=== PATIENT | female | born 1950 | race Caucasian/White ===

== ENCOUNTER → 2016-04-29 | Outpatient (CLI) | payer MEDICARE | END | disposition home or self-care (01) | LOC: LABPAT 10:45 | PROVIDERS: ATTEND Orthopaedic Surgery | DX: Z01.812 Encounter for preprocedural laboratory examination (principal) | CPT/HCPCS: 86850; 86900; 86901; 87070 ==

== ENCOUNTER → 2016-04-30 | Outpatient (CLI) | payer MEDICARE ==
--- NOTE | 2016-04-30 09:33 | XR ---
EXAMINATION TYPE: XR chest 2V DATE OF EXAM: 04/30/2016 9:27 AM HISTORY: Bilateral mastectomy. REFERENCE: Previous study dated 07/21/2010. FINDINGS: There has been bilateral mastectomies. There has been a left axillary dissection. The lungs are overinflated but clear. Pleural spaces are clear. Heart size is within normal limits. IMPRESSION: 1. STATUS POST BILATERAL MASTECTOMIES. 2. COPD. 3. NO ACUTE INTRATHORACIC ABNORMALITY.
[2016-04-30 09:37] LABS: Basophils % (A) 1 %; CH 31.3; CHCM 32.8; Eosinophils % (A) 1 %; HDW 2.02; HGB 13.1 gm/dL (11.4-16.0); Luc % (Auto) 3; Lymphocytes # (A) 0.9 k/uL (1.0-4.8); Lymphocytes % (A) 27 %; MCH 30.7 pg (25.0-35.0); MCHC 32.1 g/dL (31.0-37.0); MCV 95.8 fL (80.0-100.0); Mean Platelet Volume 6.7; Monocytes # (A) 0.3 k/uL (0-1.0); Monocytes % (A) 7 %; Neutrophils # (A) 2.1 k/uL (1.3-7.7); Neutrophils % (A) 61 %; RBC 4.28 m/uL (3.80-5.40); RDW 12.4 % (11.5-15.5); WBC 3.5 k/uL (3.8-10.6); WBC (Perox) 3.35
[2016-04-30 09:50] LABS: INR 0.9 (<1.1); Prothrombin Time 9.5 sec (9.0-12.0)
[2016-04-30 09:51] LABS: Partial Thromboplastin Time 23.5 sec (22.0-30.0)
== END | disposition home or self-care (01) ==
LOC: LABPAT 09:05
PROVIDERS: ATTEND Orthopaedic Surgery
DX: J44.9 Chronic obstructive pulmonary disease, unspecified (principal); Z01.812 Encounter for preprocedural laboratory examination; I10 Essential (primary) hypertension; Z79.01 Long term (current) use of anticoagulants; Z90.13 Acquired absence of bilateral breasts and nipples
CPT/HCPCS: 71020; 80051; 85025; 85610; 85730; 86850; 86900; 86901

== ENCOUNTER 2016-05-04 05:54 | Inpatient (IN) | payer MEDICARE ==
--- NOTE | 2016-04-20 15:12 | CONS ---
DATE OF CONSULTATION: Consultation regarding preop medical evaluation. Patient is scheduled to undergo right total hip arthroplasty. I have been asked to see the patient preoperatively. She has significant pains and at times feels like her hip is going to give out. She does use a cane to ambulate. The pain at present is mostly with weight-bearing. Patient at present has had no recent infections. She has no history of unusual abnormal bleeding or any previous history of DVT or VTE. The patient is in good health in the general. Past medical history is significant for hypertension for the past 5 years, history of bilateral mastectomy for a malignancy of the left breast. She had a right prophylactic mastectomy. No history of any lung, liver, kidney disease, history of hypothyroidism for the past about 3 months on replacement therapy. Previous history of herpes zoster with no recurrence, history of B12 deficiency on regular B12 shots. She has a history of chronic depression, well controlled with medication for the past 10 years. 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 Past surgical history is significant for total abdominal hysterectomy with bilateral salpingo-oophorectomy, bilateral mastectomy in 1990, right wrist fracture ORIF. PERSONAL HISTORY: As she is an ex-smoker, quit smoking 30 years ago. Used to smoke half pack per day for 15 years. Alcohol about 2 drinks a day. VACCINATION HISTORY: TDAP in 2013. Annual flu shot and a Pneumovax in 2013. ALLERGIES: None known. Medications include: 1. Losartan/hydrochlorothiazide 100 - 25 one daily. 2. Thyroid 30 mcg daily. 3. Zoloft 50 mg 1-1/2 tablet daily. 4. Takes Probiotica iodine. 5. Gets testosterone Depo injections. 6. Takes vitamin D. 7. Also takes B12 injections. SOCIAL HISTORY: Patient is and lives with her spouse. Patient exercises regularly until about 6 months ago due to the pain in the hips. FAMILY MEDICAL HISTORY: Father at the age of 94. He had metastatic melanoma. Mother at the age of 78. She had idiopathic pulmonary fibrosis. No brothers or sisters, 63, in good health. One daughter and one son in good health. REVIEW OF SYSTEMS: NEURO: Denies any headaches, dizziness. No double vision, blurred vision. No symptoms of TIA, syncope, seizures. CARDIAC: No chest pain, angina, palpitation. PSYCH: No anxiety, depression symptoms at present, history of depression. CARDIAC: No chest pain, angina, palpitation. RESPIRATORY: No shortness breath, cough, hemoptysis. GI: No nausea, vomiting, abdominal pain, diarrhea, constipation, hematochezia, melena. : No symptoms of dysuria, hematuria, urgency, frequency. No incontinence. EXTREMITIES: No pain except in the right and left hip area. CONSTITUTIONAL: No fever, chills. No recent infections. SKIN: No rashes or open sores. ENT: Adequate hearing, smell, taste. No pharyngeal infections. No dental issues with good dental hygiene and no history of gingivitis. PHYSICAL EXAMINATION: Pleasant female in no distress. Vital signs reveal blood pressure was 150/80. She is afebrile, respirations 18. Pulse 60, ( ) regular. HEENT: Normocephalic. NECK: Supple. No JVD. Oral cavity is moist. Pharynx clear. Gingiva normal. Ears reveal no drainage. Neck reveals no JVD, carotid bruits, or thyromegaly. Chest is clear to auscultation and percussion. CARDIAC: Normal S1, S2 with no gallops, murmurs, rubs. ABDOMEN: Soft. Bowel sounds present. EXTREMITIES: No edema. Good pulses, both upper and lower extremities. Neurologically awake, alert, oriented with well-coordinated movements except for some discomfort at the hip joints. LABORATORY ASSESSMENT: An EKG which is within normal limits. Chemistry and CBC pending. Labs done back in December had showed a sodium of 131, otherwise unremarkable. ASSESSMENT: 1. Hypertension, controlled. 2. Hypothyroidism, on medical therapy. 3. Degenerative arthritis. 4. History of depression, controlled. PLAN: The patient is stable. Continue present medical, regimen. 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 She will resume her antihypertensives postoperatively. Patient's condition discussed with the patient. Prognosis guarded. Recommended not to take any nonsteroidals including aspirin. The patient's condition discussed, benefits and risks of surgery reviewed. The risk of DVT, PE and infections reviewed. The patient's condition stable for the surgery.
[2016-04-26 11:52] VITALS: BMI 23.0
--- NOTE | 2016-05-03 15:01 | HP ---
DATE OF ADMISSION: CHIEF COMPLAINT: Right hip pain. HISTORY OF PRESENT ILLNESS: The patient is a 66-year-old retired female who presents with progressive right hip pain worsening over the past year. She notes pain in her groin when she tries to walk. She notes she is limping. She has been using a cane and has tried anti-inflammatories. PAST MEDICAL HISTORY: Significant for hypertension, breast cancer, depression and TIA. Past surgical history is significant for bilateral mastectomy, fixation of a right wrist fracture, hysterectomy with oophorectomy. CURRENT MEDICATIONS: 1. Losartan/hydrochlorothiazide. 2. Synthroid. 3. Zoloft. She denies drug allergies. FAMILY HISTORY: Significant for cancer. SOCIAL HISTORY: Negative for current tobacco or alcohol use. A 16-point review of systems otherwise reviewed and is noncontributory. On examination, the patient is approximately 5 foot 4, 130 pounds of mesomorphic habitus. HEENT exam is nonfocal. Neck is supple. Passive motion of the right hip, flexion 90 degrees, external rotation with hip flexed 60 degrees, internal rotation 10 degrees with pain. She has full extension. She is tender about the anterior aspect of the right hip. Clinically, she has some shortening of the right lower extremity compared to the left. She walks with an antalgic gait pattern. She is nontender about the lumbar spine. Her distal neurovascular exam appears be intact in the right lower extremity. AP and lateral views of the right hip obtained in the office show severe osteoarthrosis. MRI report from 05/01/2015 of the right hip shows osteoarthrosis. IMPRESSION: Right hip severe osteoarthrosis-symptomatic. RECOMMENDATIONS: I talked to the patient and her at length regarding her treatment options. At this point, she is quite limited because of pain related to her osteoarthrosis. She opts to proceed with surgery. We will plan to proceed with right total hip arthroplasty. Risks and benefits are discussed at length in layman's terms. We will institute DVT prophylaxis postoperatively. The patient underwent preoperative medical evaluation by Dr. Alston.
[~2016-05-04 05:54] MED LIST: ACETAMINOPHEN TAB 500 MG TAB PO ONE; HYDROmorphone 1 MG/ML 1 ML SYRINGE IVP PRN; MELOXICAM 7.5 MG TAB PO ONE; MIDAZOLAM 2 MG/2 ML VIAL IV PRN; ONDANSETRON 4 MG/2 ML VIAL IVP ONE; TRANEXAMIC ACID 1,000 MG in SODIUM CHLORIDE 0.9% 100 ML IVPB ONE; ceFAZolin 2 GM in SODIUM CHLORIDE 0.9% 100 ML IVPB ONE
[2016-05-04] MEDS: LACTATED RINGERS 1,000 ML IV SCH (07:09)
[2016-05-04] MEDS ORDERED: fentaNYL (PF) 50 MCG/ML 2 ML AMP ONE (07:25)
[2016-05-04] MEDS ORDERED: PHENYLEPHRINE-0.9% NACL SYG 1 MG/10 ML SYRINGE ONE (07:25)
[2016-05-04] MEDS ORDERED: SODIUM CHLORIDE 0.9% 100 ML BAG ONE (07:25)
[2016-05-04] MEDS ORDERED: MORPHINE SULFATE (PF) 0.3 MG/0.3 ML SYR ONE (07:25)
[2016-05-04] MEDS ORDERED: TRANEXAMIC ACID 1,000 MG/10 ML VIAL ONE (07:25)
[2016-05-04] MEDS ORDERED: MIDAZOLAM 2 MG/2 ML VIAL ONE (07:25)
[2016-05-04] MEDS ORDERED: diphenhydrAMINE 50 MG/ML 1 ML VIAL ONE (07:25)
[2016-05-04] MEDS ORDERED: PROPOFOL 10 MG/ML 20 ML VIAL IV ONE (07:25)
[2016-05-04] MEDS ORDERED: ceFAZolin 3,000 MG in SODIUM CHLORIDE 0.9% IRRIGATIO 3,000 ML IRRIGATION ONE (08:07)
[2016-05-04] MEDS ORDERED: LACTATED RINGERS 1,000 ML IV ONE ×3 (08:23→10:52)
[2016-05-04] MEDS ORDERED: MORPHINE SULFATE 4 MG/ML SYRINGE IVP PRN (09:18)
[2016-05-04] MEDS ORDERED: NALOXONE 0.4 MG/ML 1 ML VIAL IV PRN ×2 (09:18→09:21)
[2016-05-04] MEDS ORDERED: diphenhydrAMINE 50 MG/ML 1 ML VIAL IVP PRN (09:18)
[2016-05-04] MEDS ORDERED: ONDANSETRON 4 MG/2 ML VIAL IVP PRN ×2 (09:18→09:21)
[2016-05-04] MEDS ORDERED: HYDROcodone/APAP 5-325MG 1 EACH TAB PO PRN ×2 (09:21)
[2016-05-04] MEDS ORDERED: MAGNESIUM HYDROXIDE 2,400 MG/10 ML CUP PO PRN (09:21)
[2016-05-04] MEDS ORDERED: HYDROmorphone 1 MG/ML 1 ML SYRINGE IVP PRN (09:21)
--- NOTE | 2016-05-04 09:40 | P.OP ---
Date of Procedure: 05/04/16 Preoperative Diagnosis: Right hip severe osteoarthrosis Postoperative Diagnosis: Same Procedure(s) Performed: Right total hip nksqfolxtcuj-qmkxs-gor-anterior approach Implants: Depuy Corail size 12 collared press-fit femoral stem, 32 mm +1 cobalt chrome femoral head, 52 mm acetabular shell with neutral polyethylene liner. Anesthesia: spinal Surgeon: Jayme Wong Ship Design Teacher #1: Rigo Posadas Estimated Blood Loss (ml): 250 Pathology: other (Femoral head) Condition: stable Disposition: PACU Indications for Procedure: The patient's a 66-year-old female presents with progressive right hip pain secondary to osteoarthrosis despite conservative measures. A discussion of the risks and benefits of operative intervention versus continued conservative measures was made with the patient. She opted to proceed with surgery. Operative risks to include infection, neurovascular injury, development of blood clots, possible component loosening, possible ligament discrepancy, possible dislocation need for subsequent procedures was discussed. Informed consent was obtained. Operative Findings: as below Description of Procedure: The patient was brought to the operating room, and after induction of spinal anesthesia was placed supine on the Sasha table. The right lower extremity was prepped and draped in normal fashion. Preoperative templating previously was performed estimated component positioning and sizes. A 12 cm incision was then made 3 fingerbreadths posterior and once fingerbreadth distal to the ASIS and extending distally in line with the tensor fascia lakeisha. The skin was incised sharply. Subcu changed tissues were divided sharply. Underlying fascia was identified. The fascia was opened. The tensor fascia lakeisha/sartorius interval was then bluntly developed. The underlying posterior fascia was opened with electrocautery. The lateral circumflex vessels were identified and coagulated and subsequently were transected. The rectus was elevated off the anterior capsule. A retractor was placed perpendicular to the inguinal ligament over the anterior rim of the acetabulum. A wide capsulotomy was performed. I then gently dislocated the hip and relocated. The femoral neck osteotomy was made with a sagittal saw at a 45 angle to shaft proximally 1 cm above the level of the lesser trochanter. The head was then extracted. Attention was then paid towards preparing the acetabular. The remaining labral and capsular tissue was debrided and acetabular margins were clearly identified. A 45 mm reamer was then used to initially medialize. A reamer was then used at 45 of abduction and 20 of anteversion. I reamed up to 51 mm down to a bleeding bony surface. A trial 52 mm acetabular shell was inserted in the same orientation and was fully seated. There was good rim fit and stability. This was checked with fluoroscopy. The final implant was inserted in the same orientation. I did place one superior posterior screw with good purchase. This was 6.5 x 25 mm. A neutral polyethylene liner was gently impacted. Care was taken to avoid any soft tissue interposition. Attention was then paid towards preparing the proximal femur. Proximal femur was exposed. A box chisel was used to open the metaphyseal region. A canal finder was used to find the femoral canal. Care was taken to lateralize proximally. Sequential broaching was performed up to size 12 broach. There was good rotational stability. A standard neck along with a 32 mm +1 trial head was placed. The hip was relocated. Was taken through range of motion. This was felt to be stable and had good restorationism of soft tissue tension. This was done with the aid of fluoroscopy. The hip was gently dislocated. The trial components removed. The final stem was inserted parallel to the posterior cortex of the proximal femur and had good rotational stability. The 32 mm +1 cobalt chrome femoral head was gently impacted. Again the hip was gently relocated. Again I was felt to be stable in 0 and 60 of extension with internal and external rotation. Again I felt there was adequate restorationism of soft tissue tension. Pulsatile lavage was utilized. The fascia was closed with running 0 Vicryl suture. The subcutaneous tissues reapproximated with interrupted 2-0 Vicryl sutures. The skin was repaired with 3070 strata fix suture. Skin tape and adhesive was applied. A sterile dressing was applied. The patient was awoken from sedation and transferred to the recovery room in good condition. Blood loss was estimated at 250 mL. No complications were incurred. IV TXA was given at the beginning and end of the procedure. She did receive some Cell Saver back.
--- NOTE | 2016-05-04 09:46 | XR ---
EXAMINATION TYPE: XR Hip Limited RT DATE OF EXAM: 05/04/2016 9:39 AM COMPARISON: NONE HISTORY: Status postop There is a prosthetic hip in near anatomic alignment. There is soft tissue edema and emphysema. IMPRESSION: 1. Postoperative change. Appears in near-anatomic alignment.
[2016-05-04] MEDS ORDERED: SODIUM CHLORIDE 0.9% 1,000 ML IV ONE (12:24)
--- NOTE | 2016-05-04 13:23 | XR ---
EXAMINATION TYPE: XR Hip Limited RT DATE OF EXAM ORDERED: 05/04/2016 9:27 AM HISTORY: Right hip arthroplasty. COMPARISON: None. FINDINGS: A right hip arthroplasty has been performed. Prosthetic elements appear in good position. There is evidence of subcutaneous emphysema. IMPRESSION: STATUS POST RIGHT HIP ARTHROPLASTY.
--- NOTE | 2016-05-04 13:33 | FL ---
FLUOROSCOPY 40 seconds of fluoroscopy time were utilized during internal fixation of the distal right radius. 3 i mages document the procedure.
[2016-05-04] MEDS: traMADol 50 MG TAB PO SCH ×3 (15:09→23:07)
[2016-05-04] MEDS: ceFAZolin 2 GM in SODIUM CHLORIDE 0.9% 100 ML IVPB SCH ×2 (18:09→23:37)
[2016-05-04 20:28] VITALS: RESP 16
[2016-05-04] MEDS ORDERED: THYROID, PORK 30 MG TAB PO SCH (21:00)
[2016-05-04] MEDS ORDERED: SENNOSIDES-DOCUSATE SODIUM 1 EACH TAB PO SCH (21:00)
[2016-05-05] MEDS: LACTATED RINGERS 1,000 ML IV SCH (04:45)
[2016-05-05 07:04] LABS: Basophils % (A) 0 %; CH 31.1; Eosinophils # (A) 0.1 k/uL (0-0.7); Eosinophils % (A) 2 %; HCT 31.4 % (34.0-46.0); HGB 10.2 gm/dL (11.4-16.0); Luc # (Auto) 0.04; Luc % (Auto) 1; Lymphocytes # (A) 1.2 k/uL (1.0-4.8); Lymphocytes % (A) 28 %; MCH 30.7 pg (25.0-35.0); MCHC 32.5 g/dL (31.0-37.0); MCV 94.6 fL (80.0-100.0); Mean Platelet Volume 7.2; Monocytes # (A) 0.1 k/uL (0-1.0); Monocytes % (A) 3 %; Neutrophils # (A) 2.7 k/uL (1.3-7.7); Neutrophils % (A) 66 %; RBC 3.32 m/uL (3.80-5.40); RDW 12.4 % (11.5-15.5); WBC 4.1 k/uL (3.8-10.6); WBC (Perox) 4.45
[2016-05-05 07:32] VITALS: BP 136/63; PULSE 79; TEMP 97.5
[2016-05-05] MEDS: traMADol 50 MG TAB PO SCH ×2 (08:56→14:08)
[2016-05-05] MEDS ORDERED: SERTRALINE 25 MG TAB PO SCH (09:00)
[2016-05-05] MEDS ORDERED: ASPIRIN 81 MG CHEW PO SCH (09:00)
[2016-05-05] MEDS ORDERED: LOSARTAN-HCTZ 50-12.5 MG 1 EACH TAB PO SCH (09:00)
[2016-05-05] MEDS ORDERED: RIVAROXABAN 10 MG TAB PO SCH (09:00)
[2016-05-05] MEDS ORDERED: MELOXICAM 7.5 MG TAB PO SCH (09:00)
[2016-05-05] MEDS ORDERED: FAMOTIDINE 20 MG TAB PO SCH (09:00)
[2016-05-05] MEDS ORDERED: SERTRALINE 50 MG TAB PO SCH (09:00)
--- NOTE | 2016-05-05 09:00 | P.PN ---
Progress Note - Text Date: 05/05/2016 Time: 712 The patient is status post, total right hip arthroplasty Vital signs stable VAS: 2-3-10 The patient was pain-free until approximately 2:30 AM this morning. The patient subsequently received supplemental pain meds to alleviate the pain. The patient incurred some minimal itching yesterday, this itching is now subsiding. Pain meds to be managed by service.
--- NOTE | 2016-05-05 09:38 | PN ---
CHIEF COMPLAINT: Re-evaluation. HISTORY OF PRESENT ILLNESS: This pleasant 66-year-old female is status post right hip arthroplasty. She is doing fairly well. Actually she has been up and walk the corridor. She denies any major symptoms. REVIEW OF SYSTEMS: NEURO: Denies any headaches, dizziness. PSYCH: No anxiety. CARDIAC: No chest pain, angina, palpitation. RESPIRATORY: No shortness of breath, cough, hemoptysis. GI: No nausea, vomiting, abdominal pain. : No symptoms of dysuria, hematuria. EXTREMITIES: No pain. CONSTITUTIONAL: No fever or chills. PHYSICAL EXAMINATION: [place] female in no distress. Vital signs recorded earlier was temperature normal, pulse 56, respirations 18, blood pressure 133/63, pulse ox 98% on room air. HEENT: Normocephalic. NECK: No JVD. Chest is clear to auscultation. CARDIAC: Normal S1, S2 with no gallops or murmurs. ABDOMEN: Soft. Bowel sounds present. EXTREMITIES: No edema. Good pulses, both upper and lower extremities. Neurologically awake, alert, oriented with well coordinated movements upper extremities. LABORATORY ASSESSMENT: None new. ASSESSMENT: 1. Hypertension on medical therapy adequately controlled. 2. History of ( ) depression, controlled. 3. Degenerative arthritis. 4. Hypothyroidism on medical replacement therapy. 5. Remote history of carcinoma of the breast. PLAN: The patient is stable. Continue present medical regimen. The patient's condition discussed with the patient and spouse, who is a physician. The patient's condition is stable. Patient's medications have been reordered.
--- NOTE | 2016-05-05 12:01 | P.DS ---
Providers Date of admission: 05/04/16 05:54 Expected date of discharge: 05/05/16 Attending physician: Jayme Wong Consults: 05/04/16 09:21 Consult Physician Routine Consulting Provider: Danny Alston Reason/Comments: Medical management Do you want consulting provider notified?: Yes Primary care physician: Danny Alston Hospital Course: Date of admission: 05/04/2016 Date of discharge: 05/05/2016 Admission diagnosis: Status post right total hip arthroplasty Discharge diagnosis: Same Attending physician: Dr. Wong Surgical procedures: Right total hip arthroplasty Brief history: Patient is a a 66 year-old female with a history of progressive primary right hip osteoarthritis. At this point patient has failed conservative treatment measures and has opted to proceed with a elective right total hip arthroplasty. Hospital course: Details of patient's surgery can be found in operative report. Patient tolerated the procedure well and was subsequently transported to orthopedic floor. Patient's orthopeidc and medical care was provided daily. Patient had daily laboratory tests performed for evaluation of overall blood counts. Patient had daily physical therapy to include strengthening range of motion as well as education with walker ambulation. Patient was treated with Xarelto for their postoperative DVT prophylaxis during their inpatient stay. Patient was noted to have a relatively uneventful postoperative course. Patient reported satisfactory pain control with oral pain medications by postoperative day 0. Patient showed satisfactory progress with physical therapy. Patient moved steadily through the program and had no difficulty meeting the goals by postoperative day 1. Given patient's otherwise satisfactory course and having met physical therapy goals, plan is to discharge patient home on postoperative day 1. Discharge condition/disposition: Patient will be discharged home in stable condition. Discharge medications: Instructions are given on resumption of patient's normal daily medications per primary care recommendation, in addition patient will be prescribed Tilden 5 mg/325 mg, tramadol 50 mg, Pepcid 20 mg, Colace 100 mg, Xarelto 10 mg. Discharge instructions: 1. Wound care and infection precautions, keep incision dry and covered while showering, no lotions, creams, moisturizers. No soaking, tubs, pools, hottubs. Do not scrub over the incision. 2. Weight-bear as tolerated with walker / cane until follow-up. 3. Ice and elevate when necessary. Do not exceed 20 minutes per hour with ice pack. 4. Utilize compression sleeve until seen at first follow up appointment. 5. Visiting nursing care. 6. Home physical therapy. 7. Pain meds and anticoagulants per prescription. 8. Pain medication has potential to cause constipation. Increase oral fluid and fiber intake. Contact primary care provider if you have not had a bowel movement within 48 hours after discharge 9. No anti-inflammatory medication until discussed at first post operative visit, this including Motrin, Aleve, Mobic, Diclofenac. 10. Follow up in office at 2 weeks postop with Lrary Posadas PA-C 11. Follow up with your primary care doctor 7-10 days after discharge. 12. Contact [facility] with any questions, . Procedures: Right total hip arthroplasty Patient Condition at Discharge: Good Plan - Discharge Summary New Discharge Prescriptions: Docusate [Colace] 100 mg PO DAILY #20 capsule Famotidine [Pepcid] 20 mg PO DAILY #20 tablet Hydrocodone/Acetaminophen [Tilden 5-325] 1 - 2 each PO Q6HR PRN #40 tab PRN Reason: Pain Rivaroxaban [Xarelto] 10 mg PO DAILY #28 tab traMADol HCl [Ultram] 50 mg PO Q6H PRN #40 tab PRN Reason: Pain Discharge Medication List Aspirin [Adult Low Dose Aspirin EC] 81 mg PO DAILY 04/26/16 [History] Dim Tablet 150 mg PO DAILY 04/26/16 [History] Iodine 12.5 mg PO DAILY 04/26/16 [History] L.acidoph,Paracasei, B.lactis [Probiotic] 2 cap PO DAILY 04/26/16 [History] Losartan/Hydrochlorothiazide [Hyzaar 100-25 Tablet] 1 tab PO QAM 04/26/16 [ History] Mortgage Advisor Thyroid 30 mg PO HS 04/26/16 [History] Mortgage Advisor Thyroid 60 mg PO QAM 04/26/16 [History] Pelletized Replacement Hormones 1 applicate IJ DIRECTED 04/26/16 [History] Sertraline [Zoloft] 25 mg PO DAILY 04/26/16 [History] Sertraline [Zoloft] 50 mg PO DAILY 04/26/16 [History] Vitamin A,D,K 1 tab PO DAILY 04/26/16 [History] Rivaroxaban [Xarelto] 10 mg PO DAILY #28 tab 05/04/16 [Rx] Docusate [Colace] 100 mg PO DAILY #20 capsule 05/05/16 [Rx] Famotidine [Pepcid] 20 mg PO DAILY #20 tablet 05/05/16 [Rx] Hydrocodone/Acetaminophen [Tilden 5-325] 1 - 2 each PO Q6HR PRN #40 tab 05/05/16 [Rx] traMADol HCl [Ultram] 50 mg PO Q6H PRN #40 tab 05/05/16 [Rx] Follow up Appointment(s)/Referral(s): [facility], [NON-STAFF] - Rigo Posadas PAC [PHYSICIAN UTILITY WORKER DRIVER] - 05/19/16 3:30 pm Activity/Diet/Wound Care/Special Instructions: Walker - has at home Orthopedic Discharge Instructions: 1. Wound care and infection precautions, keep incision covered and dry while showering, no lotions, creams, moisturizers. No soaking, pools, hot tubs. Do not scrub over incision. 2. Weight-bear as tolerated with walker / cane until follow-up. 3. Ice and elevate when necessary. Do not exceed 20 minutes per hour with ice pack. 4. Utilize compression sleeve until seen at first follow up appointment. 5. Visiting nursing care. 6. Home physical therapy 7. Pain meds and anticoagulants per prescription. 8. Pain medication has potential to cause constipation. Increase oral fluid and fiber intake. Contact primary care provider if you have not had a bowel movement within 48 hours after discharge. 9. No anti-inflammatory medication until discussed at first post operative visit, this including Motrin, Aleve, Mobic, Diclofenac 10. Follow up in office at 2 weeks postop with Larry Posadas PA-C 11. Follow up with your primary care doctor 7-10 days after discharge. 12. Contact [facility] with any questions, . Discharge Disposition: HOME WITH HOME HEALTH SERVICES
--- NOTE | 2016-05-05 12:03 | P.PN ---
Subjective Principal diagnosis: Status post right hip total arthroplasty Patient is seen today resting in her hospital bed, she appears to be in no acute distress. Her pain is well-controlled at this time. She denies any headaches, lightheadedness, chest pain, shortness of breath. Objective - Vital Signs Vital signs: Vital Signs Temp 97.5 F L 05/05/16 07:00 Pulse 79 05/05/16 07:00 Resp 16 05/05/16 07:00 BP 136/63 05/05/16 07:00 Pulse Ox 98 05/05/16 07:00 Intake & Output 05/04/16 05/05/16 05/05/16 18:59 06:59 18:59 Intake Total 6422 600 360 Output Total 500 1380 800 Balance 5922 -780 -440 Weight 60.781 kg Intake: IV 6200 600 Lactated Ringers 1,000 ml 100 600 @ 50 mls/hr IV .Q20H BRANDON Rx#:[id number] Oral 222 360 Output: Urine 250 1380 800 Uretheral (Ahuja) 1380 800 Estimated Blood Loss 250 Other: Voiding Method Indwelling Catheter Indwelling Catheter - Exam Right lower extremity: Incision is clean, dry, and intact. Minimal ecchymosis present on the medial and lateral aspects of the incision. Minimal soft tissue swelling on the anterior and lateral aspect of the hip. Calf is soft, tenderness with palpation. Plantar flexion, dorsiflexion, EHL, FHL are intact. Sensory exam light touch is intact, cap refills less than 3 seconds - Labs CBC & Chem 7: 05/05/16 06:50 Labs: Abnormal Lab Results - Last 24 Hours (Table) 05/05/16 Range/Units 06:50 RBC 3.32 L (3.80-5.40) m/uL Hgb 10.2 L (11.4-16.0) gm/dL Hct 31.4 L (34.0-46.0) % Assessment and Plan Plan: Assessment: #1. Postop day #1 status post right total hip arthroplasty Plan: 1. Pain control, continue supportive oral medications 2. Continue work with therapy 3. Daily dressing changes/ice and elevate 4. Encourage incentive spirometer 5. GI and DVT prophylaxis, continue Xarelto 10 mg 6. Medical recommendations 7. Discharge planning: Patient will be likely discharged home today Time with Patient: Less than 30
--- NOTE | 2016-05-05 22:40 | PN ---
CHIEF COMPLAINT: Re-evaluation. HISTORY OF PRESENT ILLNESS: This 66-year-old female is status post right hip arthroplasty. The patient during the night had some more pain, was not able to sleep. She does feel tired out this morning. Denies any other symptoms. REVIEW OF SYSTEMS: NEURO: Denies any headaches, dizziness. PSYCH: No anxiety. CARDIAC: No chest pain, angina, palpitation. RESPIRATORY: No shortness of breath. GI: No nausea, vomiting, abdominal pain. : No symptoms of dysuria, hematuria. EXTREMITIES: Pain in the right hip. CONSTITUTIONAL: No fever or chills. PHYSICAL EXAMINATION: Pleasant female in no distress. VITALS: Temperature 97.5, pulse 79, respiration 16, blood pressure 136/63, pulse ox 98% on room air. HEENT: Normocephalic. NECK: No JVD. CHEST: Clear to auscultation. CARDIAC: Normal S1, S2. No gallops. ABDOMEN: Soft. Extremities reveal no edema. Good pulses, upper extremities and lower extremities. Neurologically awake, alert, oriented, with well-coordinated movements, upper extremities. LABORATORY ASSESSMENT: Hemoglobin 10.2. ASSESSMENT: 1. Anemia secondary to acute blood loss. 2. Hypertension, controlled. 3. History of hypothyroidism. 4. Status post right hip arthroplasty. PLAN: The patient is stable. Continue present medical regimen, pain medications to help control the pain. Patient's condition discussed with the patient. Prognosis guarded.
== END 2016-05-05 14:57 | disposition home health service (06) | DRG 470 ==
LOC: 2ORMAIN 05:54 → 3SUR 09:22
PROVIDERS: ADMIT Orthopaedic Surgery; ATTEND Orthopaedic Surgery
PROC: 0SR902A Replacement of Right Hip Joint with Metal on Polyethylene Synthetic Substitute, Uncemented, Open Approach (ICD-10-PCS; principal; 2016-05-04 07:30)
DX: M16.11 Unilateral primary osteoarthritis, right hip (principal); I10 Essential (primary) hypertension; D62 Acute posthemorrhagic anemia; E03.9 Hypothyroidism, unspecified; Z85.3 Personal history of malignant neoplasm of breast; Z86.73 Personal history of transient ischemic attack (TIA), and cerebral infarction without residual deficits; Z87.891 Personal history of nicotine dependence; Z90.13 Acquired absence of bilateral breasts and nipples; Z90.710 Acquired absence of both cervix and uterus; Z79.82 Long term (current) use of aspirin; Z79.899 Other long term (current) drug therapy
CPT/HCPCS: 73501; 85025; 86850; 86891; 86900; 86901; 88300

== ENCOUNTER 2016-07-05 20:34 | Inpatient (IN) | payer MEDICARE ==
[2016-07-05] MEDS ORDERED: SODIUM CHLORIDE 0.9% 500 ML IV STA (20:46)
[2016-07-05] MEDS ORDERED: ACETAMINOPHEN IV (For NPO) 1,000 MG in EMPTY BAG 1 BAG IVPB STA (20:46)
[2016-07-05] MEDS ORDERED: MORPHINE SULFATE 4 MG/ML SYRINGE IVP STA (20:46)
[2016-07-05 21:23] LABS: Basophils % (A) 1 %; CH 31.6; CHCM 33.2; Eosinophils # (A) 0.1 k/uL (0-0.7); Eosinophils % (A) 1 %; HCT 39.6 % (34.0-46.0); HDW 2.17; Luc # (Auto) 0.15; Luc % (Auto) 3; Lymphocytes # (A) 2.1 k/uL (1.0-4.8); Lymphocytes % (A) 36 %; MCH 32.3 pg (25.0-35.0); MCHC 33.7 g/dL (31.0-37.0); MCV 95.7 fL (80.0-100.0); Mean Platelet Volume 7.5; Monocytes # (A) 0.2 k/uL (0-1.0); Monocytes % (A) 4 %; Neutrophils # (A) 3.2 k/uL (1.3-7.7); Neutrophils % (A) 56 %; RBC 4.13 m/uL (3.80-5.40); RDW 13.4 % (11.5-15.5); WBC 5.7 k/uL (3.8-10.6); WBC (Perox) 5.87
[2016-07-05 21:25] LABS: HGB 13.3 gm/dL (11.4-16.0)
[2016-07-05 21:32] LABS: Anion Gap 14 mmol/L; Blood Urea Nitrogen 16 mg/dL (7-17); Calcium 9.2 mg/dL (8.4-10.2); Carbon Dioxide 23 mmol/L (22-30); Chloride 92 mmol/L (98-107); Glucose 103 mg/dL (74-99); Non-African American GFR(MDRD) >60 (>60 ml/min/1.73 sqM); Potassium 5.4 mmol/L (3.5-5.1); Sodium 129 mmol/L (137-145)
--- NOTE | 2016-07-05 21:40 | XR ---
EXAMINATION TYPE: XR Hip Complete RT DATE OF EXAM: 07/05/2016 9:31 PM COMPARISON: 05/04/2016 HISTORY: Right hip pain TECHNIQUE: 2 views FINDINGS: There is an anterior lateral dislocation of the prosthetic femoral head. No fracture seen. IMPRESSION: Dislocated prosthetic femoral head.
[2016-07-05 21:48] LABS: Partial Thromboplastin Time 22.3 sec (22.0-30.0); Prothrombin Time 10.1 sec (9.0-12.0)
[2016-07-05] MEDS ORDERED: KETAMINE 10 MG/ML 20 ML VIAL IV ONE (21:55)
[2016-07-05] MEDS: LORazepam 2 MG/ML SYRINGE IV STA ×2 (22:28→22:31)
--- NOTE | 2016-07-05 22:43 | ED ---
General Adult HPI - General Chief complaint: Extremity Injury, Lower Stated complaint: Poss Hip Disloc/Fracture Source: patient Mode of arrival: ambulatory Limitations: no limitations - History of Present Illness Initial comments: 66-year-old female presented for evaluation of right hip pain. She was at her granddaughter soccer game when she took a step and felt a pop in her hip. She states intense pain in the right hip with flexion at the hip and knee and external rotation. She states the light also seems short of than the other. She denies any other injuries and is not on any blood thinners. The hip replacement was done by Dr. Wong 8 weeks ago. 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 ROS Other: All systems not noted in ROS Statement are negative. Constitutional: Denies: fever, chills Eyes: Denies: eye pain, eye discharge ENT: Denies: ear pain, throat pain Respiratory: Denies: cough, dyspnea Cardiovascular: Denies: chest pain, palpitations Endocrine: Denies: fatigue, polydipsia Gastrointestinal: Denies: abdominal pain, nausea, vomiting Genitourinary: Denies: urgency, dysuria Musculoskeletal: Reports: joint swelling, other (Right hip pain with deformity) . Denies: back pain Skin: Denies: rash, lesions Neurological: Denies: headache, weakness Psychiatric: Denies: anxiety, depression Hematological/Lymphatic: Denies: easy bleeding, swollen glands Past Medical History Past Medical History: Cancer, CVA/TIA, Hypertension, Osteoarthritis (OA), Thyroid Disorder Additional Past Medical History / Comment(s): TIA 2012, hypothyroid, hx breast cancer, using a cane History of Any Multi-Drug Resistant Organisms: None Reported Past Surgical History: Breast Surgery, Hysterectomy Additional Past Surgical History / Comment(s): dental extraction, efra masctectomy, ORIF rt wrist Past Anesthesia/Blood Transfusion Reactions: No Reported Reaction Past Psychological History: Depression Smoking Status: Former smoker Past Alcohol Use History: Daily Additional Past Alcohol Use History / Comment(s): quit smoking "long ago" smoked for about 15 yrs- < 1 PPD Past Drug Use History: None Reported - Past Family History Father Family Medical History: Cancer General Exam Limitations: no limitations General appearance: alert, in no apparent distress Head exam: Present: atraumatic, normocephalic, normal inspection Eye exam: Present: normal appearance, PERRL, EOMI. Absent: scleral icterus, conjunctival injection, periorbital swelling ENT exam: Present: normal exam, mucous membranes moist Neck exam: Present: normal inspection. Absent: tenderness, meningismus, lymphadenopathy Respiratory exam: Present: normal lung sounds bilaterally. Absent: respiratory distress, wheezes, rales, rhonchi, stridor Cardiovascular Exam: Present: regular rate, normal rhythm, normal heart sounds. Absent: systolic murmur, diastolic murmur, rubs, gallop, clicks GI/Abdominal exam: Present: soft, normal bowel sounds. Absent: distended, tenderness, guarding, rebound, rigid Rectal exam: Present: deferred Extremities exam: Present: tenderness (Right hip), normal capillary refill, joint swelling (Right hip), other (Right lower extremity is held in flexion at the knee and hip with external rotation and shortening of the leg.). Absent: pedal edema, calf tenderness Back exam: Present: normal inspection Neurological exam: Present: alert, oriented X3, CN II-XII intact. Absent: motor sensory deficit Psychiatric exam: Present: normal affect, normal mood Skin exam: Present: warm, dry, intact, normal color. Absent: rash Course Vital Signs 07/05/16 07/05/16 07/05/16 20:38 22:15 22:20 Temperature 97.5 F L Pulse Rate 74 82 83 Respiratory 18 20 16 Rate Blood Pressure 145/75 168/79 164/79 O2 Sat by Pulse 99 99 99 Oximetry 07/05/16 07/05/16 07/05/16 22:25 22:30 22:35 Temperature Pulse Rate 74 72 74 Respiratory 14 14 18 Rate Blood Pressure 175/80 156/68 151/69 O2 Sat by Pulse 98 96 95 Oximetry 07/05/16 07/05/16 07/05/16 22:40 22:45 22:50 Temperature Pulse Rate 71 68 65 Respiratory 20 19 16 Rate Blood Pressure 151/62 106/56 91/53 O2 Sat by Pulse 97 97 96 Oximetry 07/05/16 07/05/16 07/05/16 22:55 23:00 23:05 Temperature Pulse Rate 64 64 66 Respiratory 18 18 16 Rate Blood Pressure 99/58 95/54 102/58 O2 Sat by Pulse 96 96 98 Oximetry 07/05/16 07/05/16 07/06/16 23:10 23:25 00:19 Temperature 97.9 F Pulse Rate 64 64 74 Respiratory 17 18 16 Rate Blood Pressure 96/53 91/53 109/58 O2 Sat by Pulse 96 98 98 Oximetry EKG Findings - EKG Comments: EKG Findings:: Sinus rhythm with first-degree AV block and a ventricular rate of 70, LISA 210, QRS 86, QT/QTc 42/434. Medical Decision Making - Medical Decision Making 66-year-old female with a history of a right hip replacement 8 weeks ago presented for evaluation of right hip pain after taking a step and feeling a pop with resulting deformity. Right leg is held in external rotation with flexion at the hip and knee and shortening of the leg. Picture is consistent with dislocation and this was confirmed by x-ray. Patient consented for conscious sedation and orthopedic reduction of right hip dislocation. Patient was given ketamine and multiple times made at reduction were unsuccessful. Patient tolerated the procedure well. Page placed for Dr. Metz. Requested to have him take the pt to the OR for reduction to which he stated the patient should be admitted for reduction in the morning. Repeat right hip xray placed to rule out injuries from reduction attempts. Patient admitted and bed request submitted. Repeat x-ray confirmed continued dislocation with proximal migration. There appears to be no osseous abnormalities following attempted dislocation. - Lab Data Result diagrams: 07/05/16 21:00 07/05/16 21:00 Lab Results 07/05/16 07/05/16 07/05/16 Range/Units 21:00 21:00 21:00 WBC 5.7 (3.8-10.6) k/uL RBC 4.13 (3.80-5.40) m/uL Hgb 13.3 D (11.4-16.0) gm/dL Hct 39.6 (34.0-46.0) % MCV 95.7 (80.0-100.0) fL MCH 32.3 (25.0-35.0) pg MCHC 33.7 (31.0-37.0) g/dL RDW 13.4 (11.5-15.5) % Plt Count 288 (150-450) k/uL Neutrophils % 56 % Lymphocytes % 36 % Monocytes % 4 % Eosinophils % 1 % Basophils % 1 % Neutrophils # 3.2 (1.3-7.7) k/uL Lymphocytes # 2.1 (1.0-4.8) k/uL Monocytes # 0.2 (0-1.0) k/uL Eosinophils # 0.1 (0-0.7) k/uL Basophils # 0.0 (0-0.2) k/uL PT 10.1 (9.0-12.0) sec INR 1.0 (<1.1) APTT 22.3 (22.0-30.0) sec Sodium 129 L (137-145) mmol/L Potassium 5.4 H (3.5-5.1) mmol/L Chloride 92 L (98-107) mmol/L Carbon Dioxide 23 (22-30) mmol/L Anion Gap 14 mmol/L BUN 16 (7-17) mg/dL Creatinine 0.52 (0.52-1.04) mg/dL Est GFR (MDRD) Af Amer >60 (>60 ml/min/1.73 sqM) Est GFR (MDRD) Non-Af >60 (>60 ml/min/1.73 sqM) Glucose 103 H (74-99) mg/dL Calcium 9.2 (8.4-10.2) mg/dL Disposition Clinical Impression: Anterior dislocation of right hip Disposition: ADMITTED IP TO [facility] Decision to Admit Reason: Admit from EC Decision Date: 07/05/16 Decision Time: 23:25
[2016-07-05] MEDS ORDERED: MORPHINE SULFATE 4 MG/ML SYRINGE IV PRN (23:18)
[2016-07-05] MEDS ORDERED: ONDANSETRON 4 MG/2 ML VIAL IVP PRN (23:18)
[2016-07-05] MEDS ORDERED: NALOXONE 0.4 MG/ML 1 ML VIAL IV PRN (23:18)
[2016-07-05] MEDS ORDERED: KETOROLAC 30 MG/ML 1 ML VIAL IVP PRN (23:18)
[2016-07-05] MEDS ORDERED: ACETAMINOPHEN TAB 325 MG TAB PO PRN (23:18)
[2016-07-05] MEDS ORDERED: KETOROLAC 30 MG/ML 1 ML VIAL IVP STA (23:21)
--- NOTE | 2016-07-06 00:32 | XR ---
Exam: XR RIGHT HIP History: Pain. Comparison: 07/05/16 at 21:29. Technique: 3 views. Findings/impression: Redemonstration of anterolateral dislocation of right hip prosthesis with proximal migration.
[2016-07-06 01:41] VITALS: BMI 24.5
[2016-07-06] MEDS: SODIUM CHLORIDE 0.9% 1,000 ML IV SCH ×3 (02:03→10:57)
[2016-07-06 02:30] LABS: Appearance,Urine Clear (Clear); Bilirubin,Urine Negative (Negative); Glucose,Urine (UA) Negative (Negative); Ketones,Urine Negative (Negative); Leukocyte Esterase,Urine Negative (Negative); Nitrite,Urine Negative (Negative); PH, Urine 6.5 (5.0-8.0); Protein,Urine Negative (Negative); Specific Gravity,Urine 1.012 (1.001-1.035); UA Billing (MACRO vs. MICRO) CHEM; Urobilinogen,Urine <2.0 mg/dL (<2.0)
--- NOTE | 2016-07-06 07:32 | P.HPOR ---
History of Present Illness H&P Date: 07/06/16 Chief Complaint: Right hip pain Patient reports being in a soccer game yesterday and feeling a pop sensation in the right hip at which time she fell down. She has a history of right total hip arthroplasty performed approximately 2 months ago. She reports she is doing very well until this episode. Review of Systems Constitutional: Reports as per HPI Past Medical History Past Medical History: Cancer, CVA/TIA, Hypertension, Osteoarthritis (OA), Thyroid Disorder Additional Past Medical History / Comment(s): TIA 2012, hypothyroid, hx breast cancer 1990, using a cane History of Any Multi-Drug Resistant Organisms: None Reported Past Surgical History: Breast Surgery, Hysterectomy Additional Past Surgical History / Comment(s): dental extraction, efra [id number], ORIF rt wrist, right hip replacement 05/04/16 Past Anesthesia/Blood Transfusion Reactions: No Reported Reaction Past Psychological History: Depression Smoking Status: Former smoker Past Alcohol Use History: Daily Additional Past Alcohol Use History / Comment(s): quit smoking "long ago" smoked for about 15 yrs- < 1 PPD Past Drug Use History: None Reported - Past Family History Father Family Medical History: Cancer Medications and Allergies Home Medications Medication Instructions Recorded Confirmed Type Losartan/Hydrochlorothiazide 1 tab PO QAM 04/26/16 07/05/16 History [Hyzaar 100-25 Tablet] 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 No significant issues noted on an osteopathic structural exam other than those noted in the History and Physical/Consult. - Hip right Gait: other Tenderness with palpation: anterior Pain with motion: other (Angelina range of motion with pain, previous incision well -healed, distal neurovascular exam intact.) Results - Labs Result Diagrams: 07/05/16 21:00 07/05/16 21:00 - Diagnostic results Hip x-ray: report reviewed, image reviewed Assessment and Plan Plan: I discussed the patient's right hip prosthetic dislocation with both the patient and her . I recommended closed reduction. I reviewed the procedure, risks, complications and recovery. Patient and were agreeable. Consent will be obtained. I did review the possibility of inability to reduce the hip which would necessitate additional intervention. Time with Patient: Less than 30
[2016-07-06] MEDS ORDERED: MIDAZOLAM 2 MG/2 ML VIAL ONE (07:53)
[2016-07-06] MEDS ORDERED: PROPOFOL 10 MG/ML 20 ML VIAL IV ONE (07:53)
[2016-07-06] MEDS ORDERED: LIDOCAINE 1% INJ 10MG/ML (20 ML MDV) ONE (07:53)
[2016-07-06] MEDS ORDERED: SUCCINYLCHOLINE CHLORIDE VIAL 200 MG/10 ML VIAL IV ONE (07:53)
[2016-07-06 08:04] VITALS: RESP 16
[2016-07-06] MEDS ORDERED: IV FLUID CONTINUATION 1,000 ML IV ONE (08:09)
[2016-07-06] MEDS ORDERED: HYDROcodone/APAP 5-325MG 1 EACH TAB PO PRN ×2 (08:11)
[2016-07-06] MEDS ORDERED: NALOXONE 0.4 MG/ML 1 ML VIAL IV PRN (08:11)
[2016-07-06] MEDS ORDERED: traMADol 50 MG TAB PO PRN (08:11)
[2016-07-06] MEDS ORDERED: HYDROmorphone 1 MG/ML 1 ML SYRINGE IVP PRN ×3 (08:11)
[2016-07-06] MEDS ORDERED: ONDANSETRON 4 MG/2 ML VIAL IVP PRN (08:11)
--- NOTE | 2016-07-06 08:11 | P.OP ---
Date of Procedure: 07/06/16 Preoperative Diagnosis: Right hip prosthetic dislocation Postoperative Diagnosis: Right hip prosthetic dislocation Procedure(s) Performed: Closed reduction right hip dislocation Surgeon: Braden Calderon Estimated Blood Loss (ml): 0 Pathology: none sent Condition: stable Disposition: PACU Indications for Procedure: 58-year-old patient seen with right hip prosthetic dislocation. I recommended closed reduction. Patient and were agreeable, consent was obtained. Description of Procedure: The patient was taken to a monitored anesthesia care. The patient underwent appropriate anesthesia to include muscle relaxation. When sufficient analgesia/ anesthesia was noted a closed reduction of the right hip was performed. I felt an audible pop. Once the hip was relocated I took it through range of motion and had overall good stability. The patient will be awakened. Postreduction x- rays were reobtained.
[2016-07-06] MEDS ORDERED: LACTATED RINGERS 1,000 ML IV SCH (08:15)
[2016-07-06] MEDS ORDERED: SODIUM CHLORIDE 0.9% 1,000 ML IV ONE (08:36)
--- NOTE | 2016-07-06 08:42 | XR ---
EXAMINATION TYPE: XR Hip Limited RT DATE OF EXAM: 07/06/2016 8:32 AM CLINICAL HISTORY: Right hip prosthesis dislocation. TECHNIQUE: Single AP portable view of right hip is obtained after attempted reduction. COMPARISON: Right hip x-ray from yesterday. FINDINGS: Metallic hardware from right hip arthroplasty is seen and appears satisfactory in alignment and position after reduction. IMPRESSION: Successful reduction of prosthesis dislocation.
[2016-07-06 09:09] VITALS: TEMP 97.5
[2016-07-06 09:37] LABS: Basophils % (A) 0 %; CHCM 31.6; Eosinophils % (A) 1 %; HCT 36.5 % (34.0-46.0); HDW 1.95; HGB 12.1 gm/dL (11.4-16.0); Luc # (Auto) 0.08; Luc % (Auto) 2; Lymphocytes % (A) 18 %; MCH 32.6 pg (25.0-35.0); MCHC 33.1 g/dL (31.0-37.0); MCV 98.3 fL (80.0-100.0); Mean Platelet Volume 6.4; Monocytes # (A) 0.3 k/uL (0-1.0); Monocytes % (A) 5 %; Neutrophils # (A) 3.9 k/uL (1.3-7.7); Neutrophils % (A) 75 %; RBC 3.71 m/uL (3.80-5.40); RDW 13.2 % (11.5-15.5); WBC 5.3 k/uL (3.8-10.6)
[2016-07-06 10:02] LABS: Anion Gap 8 mmol/L; Blood Urea Nitrogen 14 mg/dL (7-17); Calcium 7.9 mg/dL (8.4-10.2); Carbon Dioxide 19 mmol/L (22-30); Chloride 103 mmol/L (98-107); Glucose 103 mg/dL (74-99); Non-African American GFR(MDRD) >60 (>60 ml/min/1.73 sqM); Sodium 130 mmol/L (137-145)
[2016-07-06 10:16] VITALS: BP 134/78; PULSE 72
--- NOTE | 2016-07-06 10:41 | P.PN ---
Subjective Principal diagnosis: Status post relocation of dislocated right periprosthetic hip Patient is seen today resting in her hospital bed, her is present at bedside. She remains comfortable at this time. She has no significant discomfort with range of motion of the right hip. She denies any headaches, lightheadedness, chest pain. Objective - Vital Signs Vital signs: Vital Signs Temp 97.5 F L 07/06/16 09:08 Pulse 72 07/06/16 09:25 Resp 16 07/06/16 09:25 BP 134/78 07/06/16 09:25 Pulse Ox 98 07/06/16 09:25 Intake & Output 07/05/16 07/06/16 07/06/16 18:59 06:59 18:59 Intake Total 0 Balance 0 Weight 64.864 kg 64.864 kg Intake: IV 0 Other: Voiding Method Toilet Bedpan # Voids 1 1 - Exam Right lower extremity: Leg length remained intact, no malalignment noted of the right lower extremity. Plantar flexion, dorsiflexion, EHL, FHL are intact. Sensory exam to light touch is intact. Cap refills less than 3 seconds. Logroll maneuver reproduces no pain in the hip. She is able to straight leg raise. - Labs CBC & Chem 7: 07/06/16 09:08 07/06/16 09:08 Labs: Abnormal Lab Results - Last 24 Hours (Table) 07/06/16 07/06/16 Range/Units 09:08 09:08 RBC 3.71 L (3.80-5.40) m/uL Sodium 130 L (137-145) mmol/L Carbon Dioxide 19 L (22-30) mmol/L Creatinine 0.40 L (0.52-1.04) mg/dL Glucose 103 H (74-99) mg/dL Calcium 7.9 L (8.4-10.2) mg/dL Assessment and Plan Plan: Assessment: 1. Status post relocation of dislocated right periprosthetic Plan: 1. Patient remained stable at this point, I will allow her to go home today 2. I recommended weightbearing with walker as needed, avoid crossing the legs at this time. I also discussed posterior hip precautions patient 3. Pain control, utilize oral medications as needed 4. She has scheduled follow up with Dr. Wong this Tuesday Time with Patient: Less than 30
--- NOTE | 2016-07-06 10:43 | P.DS ---
Providers Date of admission: 07/05/16 23:21 Expected date of discharge: 07/06/16 Attending physician: Braden Calderon Primary care physician: Danny Alston [facility] Hospital Course: Date of admission: 07/06/2016 Date of discharge: Same Admission diagnosis: Right prosthetic hip dislocation Discharge diagnosis: Status post closed relocation right prosthetic hip Attending physician: Dr. Calderon Surgical procedures: Closed reduction right prosthetic hip Brief history: Patient is a 66-year-old female who is status post right total hip arthroplasty times a weeks. Patient was at her granddaughter's soccer game yesterday, when she turned and felt a popping sensation in the right hip. She immediately fell to the ground and was unable to bear weight, she noticed obvious shortening and external rotation. Patient was brought to [facility] emergency room, and imaging test demonstrated a dislocation of the right prosthetic hip. Our orthopedic service was contacted, Dr. Calderon proceed with a closed reduction of right prosthetic hip on 06/28/2016. Hospital course: Details of patient's surgery can be found in operative report. Patient tolerated the procedure well and was subsequently transported to orthopedic floor. Patient was seen on the [facility] floor, she was stable after procedure. Her pain was well-controlled, no malalignment of the right leg was noted, logroll maneuver reproduces no pain. Patient was discharged to home on 07/06/2016. Discharge condition/disposition: Patient will be discharged home in stable condition. Discharge medications: Instructions are given on resumption of patient's normal daily medications per primary care recommendation. Discharge instructions: 1. Advised utilizing a walker as needed for ambulation or cane. Advised avoiding crossing legs, and utilize posterior hip precautions as best as possible. 2. Ice and elevate when necessary. Do not exceed 20 minutes per hour with ice pack. 3. Patient is scheduled follow up with Dr. Wong this Tuesday, she'll continue with that appointment 4. Advised to contact [facility] with any further questions Procedures: Closed relocation of dislocated right periprosthetic hip Patient Condition at Discharge: Good Plan - Discharge Summary Discharge Medication List Losartan/Hydrochlorothiazide [Hyzaar 100-25 Tablet] 1 tab PO QAM 04/26/16 [ History] Appeals [employer] Justice Thyroid 30 mg PO BID 04/26/16 [History] Sertraline [Zoloft] 75 mg PO DAILY 04/26/16 [History] Follow up Appointment(s)/Referral(s): Danny Alston MD [Primary Care Provider] - 1-2 days Jayme Wong MD [STAFF PHYSICIAN] - 3 Days Activity/Diet/Wound Care/Special Instructions: Orthopedic Discharge Instructions: 1. Utilize walker as needed 2. Pain medication as needed 3. Avoid crossing legs at this time, posterior hip precautions 4. [facility]-up at [facility] with [facility]. Wong in 3 days Discharge Disposition: HOME SELF-CARE
== END 2016-07-06 13:30 | disposition home or self-care (01) | DRG 561 ==
LOC: EC 20:34 → 4MS4W 23:21
PROVIDERS: ADMIT Orthopaedic Surgery; ATTEND Orthopaedic Surgery
PROC: 0SW9XJZ Revision of Synthetic Substitute in Right Hip Joint, External Approach (ICD-10-PCS; 2016-07-05)
PROC: 0SW9XJZ Revision of Synthetic Substitute in Right Hip Joint, External Approach (ICD-10-PCS; principal; 2016-07-06 10:30)
DX: T84.020A Dislocation of internal right hip prosthesis, initial encounter (principal); I10 Essential (primary) hypertension; F32.9 Major depressive disorder, single episode, unspecified; E03.9 Hypothyroidism, unspecified; M21.70 Unequal limb length (acquired), unspecified site; I44.0 Atrioventricular block, first degree; M19.90 Unspecified osteoarthritis, unspecified site; Z86.73 Personal history of transient ischemic attack (TIA), and cerebral infarction without residual deficits; Z80.9 Family history of malignant neoplasm, unspecified; Z90.710 Acquired absence of both cervix and uterus; Z90.13 Acquired absence of bilateral breasts and nipples; Z87.81 Personal history of (healed) traumatic fracture; Z96.641 Presence of right artificial hip joint; Z85.3 Personal history of malignant neoplasm of breast; Z87.891 Personal history of nicotine dependence; Z79.899 Other long term (current) drug therapy; W18.39XA Other fall on same level, initial encounter; Y93.01 Activity, walking, marching and hiking; Y92.322 Soccer field as the place of occurrence of the external cause
CPT/HCPCS: 27265; 36415; 73501; 73502; 80048; 81003; 85025; 85610; 85730; 87086; 93005; 96374; 96375; 99152; 99285

== ENCOUNTER 2018-06-16 07:30 | Day surgery (SDC) | payer MEDICARE ==
[2018-05-16 14:39] VITALS: BMI 23.0
[~2018-06-16 07:30] MED LIST changes: -ACETAMINOPHEN TAB 500 MG TAB PO ONE; -HYDROmorphone 1 MG/ML 1 ML SYRINGE IVP PRN; +LACTATED RINGERS 1,000 ML IV SCH; -MELOXICAM 7.5 MG TAB PO ONE; -MIDAZOLAM 2 MG/2 ML VIAL IV PRN; -ONDANSETRON 4 MG/2 ML VIAL IVP ONE; -TRANEXAMIC ACID 1,000 MG in SODIUM CHLORIDE 0.9% 100 ML IVPB ONE; -ceFAZolin 2 GM in SODIUM CHLORIDE 0.9% 100 ML IVPB ONE
[2018-06-16 07:50] VITALS: RESP 16; TEMP 97.8
[2018-06-16] MEDS ORDERED: LIDOCAINE 1% 20 ML VIAL (10MG/ML) FOR IV START INTRADERMA ONE (07:59)
[2018-06-16] MEDS ORDERED: PROPOFOL 10 MG/ML 20 ML VIAL IV ONE (08:29)
--- NOTE | 2018-06-16 08:45 | P.PCN ---
Date of Procedure: 06/16/18 Procedure(s) Performed: BRIEF HISTORY: Patient is a 68-year-old pleasant female, scheduled for an elective colonoscopy as a part of screening for colorectal neoplasia. Her last colonoscopy was 10 years ago. PROCEDURE PERFORMED: Colonoscopy with biopsy. PREOPERATIVE DIAGNOSIS: Screening for colon cancer. IV sedation per Anesthesia. PROCEDURE: After informed consent was obtained, the patient, was brought into the endoscopy unit. IV sedation was administered by Anesthesia under continuous monitoring. Digital rectal examination was normal. Initially the Olympus CF-160 flexible video colonoscope was then inserted in the rectum, gradually advanced into the cecum without any difficulty. Careful examination was performed as the scope was gradually being withdrawn. Ileocecal valve and the appendiceal orifice were visualized and appeared normal. Prep was excellent. Mucosa of the cecum, ascending colon, transverse colon, descending colon, appeared normal. In the sigmoid colon there was a 3-4 mm sessile polyp that was removed by cold biopsy. There were scattered sigmoid diverticula seen. Rest of the sigmoid colon, and rectum appeared normal. Retroflexion was performed in the rectum and no lesions were seen. The patient tolerated the procedure well. IMPRESSION: 3-4 mm sessile sigmoid colon polyp status post removal with biopsy Scattered sigmoid diverticulosis. RECOMMENDATIONS: Findings of this examination were discussed with the patient well as her family. She was advised to follow with the biopsy results. If the biopsy shows adenoma, she can have a repeat colonoscopy in 5 years.
[2018-06-16 09:24] VITALS: BP 151/79; PULSE 68
== END 2018-06-16 09:29 | disposition home or self-care (01) ==
LOC: ORWHC2ENDO 07:30
PROVIDERS: ATTEND Internal Medicine Gastroenterology
DX: Z12.11 Encounter for screening for malignant neoplasm of colon (principal); K57.30 Diverticulosis of large intestine without perforation or abscess without bleeding; D12.5 Benign neoplasm of sigmoid colon; Z79.82 Long term (current) use of aspirin; Z79.899 Other long term (current) drug therapy; I10 Essential (primary) hypertension; E78.5 Hyperlipidemia, unspecified; Z85.3 Personal history of malignant neoplasm of breast; Z86.73 Personal history of transient ischemic attack (TIA), and cerebral infarction without residual deficits; Z96.641 Presence of right artificial hip joint; Z90.13 Acquired absence of bilateral breasts and nipples
CPT/HCPCS: 88305; 45380; J2704

== ENCOUNTER → 2019-06-19 | Outpatient (CLI) | payer MEDICARE ==
[2019-06-19 10:11] LABS: HGB 13.5 gm/dL (11.4-16.0); MCV 99.8 fL (80.0-100.0); Mean Platelet Volume 7.4; Platelet Count 250 k/uL (150-450); RBC 4.11 m/uL (3.80-5.40); RDW 12.9 % (11.5-15.5); WBC 3.5 k/uL (3.8-10.6)
== END | disposition home or self-care (01) ==
LOC: LABWHC1 09:35
PROVIDERS: ATTEND Obstetrics & Gynecology
DX: R53.83 Other fatigue (principal)
CPT/HCPCS: 36415; 85027

== ENCOUNTER → 2019-12-05 | Outpatient (CLI) | payer MEDICARE ==
[2019-12-05 12:16] LABS: INR 0.9 (<1.2); Prothrombin Time 9.3 sec (9.0-12.0)
== END | disposition home or self-care (01) ==
LOC: LABWHC1 10:27
PROVIDERS: ATTEND Orthopaedic Surgery
DX: Z01.818 Encounter for other preprocedural examination (principal); Z01.812 Encounter for preprocedural laboratory examination; M16.12 Unilateral primary osteoarthritis, left hip
CPT/HCPCS: 36415; 85610; 85730; 86850; 86900; 86901; 87070

== ENCOUNTER 2019-12-10 11:14 | Day surgery (SDC) | payer MEDICARE ==
[2019-12-04 08:20] VITALS: BMI 23.1
[~2019-12-10 11:14] MED LIST changes: +ACETAMINOPHEN TAB 500 MG TAB PO ONE; +DEXAMETHASONE SOD PHOSPHATE 10 MG/ML 1 ML VIAL IV ONE; +GABAPENTIN 300 MG CAP PO ONE; +HYDROcodone/APAP 5-325MG 1 EACH TAB PO PRN; +HYDROmorphone 0.5 MG/0.5 ML SYRINGE IVP PRN; -LACTATED RINGERS 1,000 ML IV SCH; +MAGNESIUM HYDROXIDE 2,400 MG/10 ML CUP PO PRN; +MELOXICAM 7.5 MG TAB PO ONE; +NALOXONE 0.4 MG/ML 1 ML VIAL IV PRN; +ONDANSETRON 4 MG/2 ML VIAL IVP ONE; +ONDANSETRON 4 MG/2 ML VIAL IVP PRN; +ROPIVACAINE 246.25 MG, EPINEPHrine 0.5 MG, KETOROLAC 30 MG, cloNIDine HCL/PF 80 MCG, WA... MISCELLANE ONE; +TRANEXAMIC ACID 1,000 MG in SODIUM CHLORIDE 0.9% 100 ML IVPB ONE
[2019-12-10] MEDS ORDERED: ACETAMINOPHEN TAB 500 MG TAB ONE (11:36)
[2019-12-10] MEDS ORDERED: ONDANSETRON 4 MG/2 ML VIAL ONE (11:36)
[2019-12-10] MEDS: LACTATED RINGERS 1,000 ML IV SCH ×2 (11:58→21:40)
[2019-12-10] MEDS ORDERED: fentaNYL (PF) 50 MCG/ML 2 ML AMP ONE (12:59)
[2019-12-10] MEDS ORDERED: PROPOFOL 10 MG/ML 20 ML VIAL IV ONE (12:59)
[2019-12-10] MEDS ORDERED: MIDAZOLAM 2 MG/2 ML VIAL ONE (12:59)
--- NOTE | 2019-12-10 14:35 | P.OP ---
Date of Procedure: 12/10/19 Preoperative Diagnosis: Severe osteoarthritis left hip Postoperative Diagnosis: Severe osteoarthritis left hip Procedure(s) Performed: Left total hip arthroplasty with a direct anterior approach Implants: Saldivar and nephew Polarstem size 3 standard Saldivar [employer] Nephew R3, 3 hole acetabular shell, 48 mm [employer]divar [employer] Nephew reflection 6.5 mm cancellus screw, 20 mm 2 [employer]div[employer]hew R3, XLPE 20 acetabular liner Saldivar [employer] Nephew Oxinium femoral head 32 m, +0 All components were press-fit. The articulation is Oxinium on polyethylene. Anesthesia: spinal Surgeon: Vic Sears Cementer Hand #1: Merry Phelps Estimated Blood Loss (ml): 100 Pathology: other (Femoral head) Condition: stable Disposition: PACU Indications for Procedure: After failure of conservative treatment we discussed the surgical and nonsurgical treatment options at length. Patient wishes to proceed with a total hip arthroplasty with a direct anterior approach. Complications specific to this procedure were discussed at length, including but not limited to infection, leg length discrepancy, dislocation, and nerve injury. Covid-19 was also discussed at length with the patient, and they are aware of the current policies and procedures. The patient was given the option of delaying surgery, but they elect to proceed knowing these risks. Patient is aware of all these complications and informed consent was obtained Operative Findings: The operative findings are consistent with severe osteoarthritis of the left hip Description of Procedure: Patient was seen and evaluated in the preoperative area, consent was reviewed, and the surgical site was marked with a skin marker. Patient was then brought to the operating room and given prophylactic antibiotics intravenously. 1 g of Tranexamic acid was also given. A spinal anesthetic was administered by the anesthesia department. The patient was then placed on the [place] table with the bony prominences well-padded. The hip area was then prepped and draped in usual sterile fashion. A universal timeout was then performed, which confirmed the patient's name, surgical site, ALLERGIES, and procedure being performed. Next the incision site was located at 1 cm distal and 1 cm lateral to the anterior superior iliac spine. The skin and subcutaneous tissues were sharply incised. Incision was carefully dissected down to the fascia overlying the tensor fascia lakeisha muscle. This fascia was then incised in line with the incision. Next, using blunt finger dissection, the tensor fascia lakeisha muscle was dissected off its investing fascia. The muscle was then carefully retracted laterally with a cobra retractor over the lateral neck of the femur. Next, the circumflex vessels were identified and cauterized using the AquaMantis device. The anterior hip capsule was then exposed. The capsule was then opened and an inverted T fashion. Cobra retractors were then placed intracapsularly. The proximal femur was then visualized. The femoral neck was then osteotomized appropriate level above the lesser trochanter. Small amount of traction was placed with the [place] table. A small wedge of bone was then removed from the remaining femoral head. Next, using a corkscrew femoral head was easily removed from the acetabulum. On gross visual inspection, the femoral head had complete loss of articular cartilage in multiple periarticular osteophytes. Attention was then turned to the acetabulum. the acetabulum was exposed and any remaining labrum was excised. Sequential reaming of the acetabulum was performed using fluoroscopic guidance. When the appropriate size was reached, a trial was then placed. The position and fit of the trial was checked with fluoroscopy. The trial was then removed. Then, using fluoroscopic guidance, the final implant was impacted at 20 of anteversion and 40 of abduction, and fully seated in the acetabulum. 2 screws were then placed in the acetabulum. Again fluoroscopy was used to check pos ition of the screws. Next, the liner was then impacted, with a 20 elevated liner located in the anterior superior quadrant. Component locking was confirmed. Attention was then directed to the femur. With the aid of the [place] table, the femur was externally rotated to approximately 130, extended, and abducted under the opposite leg. A side hook was then placed under the proximal femur, and the side hook elevator was used to elevate the proximal femur. Retractors were then placed. A capsular release was performed, as well as a release of the conjoined tendon, which afforded excellent visualization of the proximal femur. Next, a box osteotome was used to lateralize the proximal femur. A inspector and hand packager was then used to locate the femoral canal. Sequential broaching was then performed with appropriate size which afforded excellent fixation in the proximal femur. A trial was then placed with appropriate head and neck, and the hip was gently reduced with the aid of the [place] table. Fluoroscopy was then used to check position of the components, as well as to ensure equal leg lengths. The hip was then gently dislocated and the trials were then removed. Final implants were then impacted and the hip was again reduced. Final fluoroscopic x-rays confirmed that the components were in anatomic position, as well as equal leg lengths. The hip was also taken through range of motion, and found to be stable. The hip was then copiously irrigated with antibiotic solution with pulsatile lavage. The hip was then irrigated with Irrisept solution. The soft tissues were then injected with a ropivacaine solution, which consisted of 246.25 mg of ropivacaine, 0.5 mg of epinephrine, 30 mg of Toradol, 80 g of clonidine, and 48.45 mL of sterile water, for a total of 100 mL of fluid injected. A second dose of 1 g of Tranexamic acid was also given. the fascia was then closed with 2-0 strata fix suture. The subcutaneous tissue was closed with 3-0 Vicryl. The subcuticular tissue was closed with 3-0 strata fix suture. The skin was then closed with Dermabond glue and a sterile silver dressing. The patient was then transferred to the recovery room in stable condition. The speech language assistant ZACH Martinez was required due to the complexity of surgery, and the need for skilled neurosurgical physician assistant for positioning, draping, exposure, retraction, and closure of the wound.
--- NOTE | 2019-12-10 14:50 | FL ---
Fluoroscopy HISTORY: Anterior hip arthroplasty 42 seconds fluoroscopy time supplied to the referring clinician. 2 intraoperative C-arm images docum ent the procedure. See dictated report from orthopedic surgery.
--- NOTE | 2019-12-10 14:51 | XR ---
Limited left hip HISTORY: Hip arthroplasty 2 intraoperative C-arm images document the procedure.
--- NOTE | 2019-12-10 15:12 | XR ---
Left hip HISTORY: Status post left hip arthroplasty Single frontal view of the left hip Lucencies present in the soft tissues. Patient is status post left hip arthroplasty. There is anatomi c alignment. IMPRESSION: Orthopedic follow-up.
[2019-12-10] MEDS ORDERED: LACTATED RINGERS 1,000 ML IV ONE (15:49)
--- NOTE | 2019-12-10 17:22 | P.CONS ---
History of Present Illness - Reason for Consult Consult date: 12/10/19 Medical management - Chief Complaint Left hip osteoarthritis - History of Present Illness This is a 69-year-old female with past medical history noted below significant for severe osteoarthritis of the left hip there is currently admitted to the hospital for elective left total hip arthroplasty. Patient is postoperative day #0. No complications reported with surgery. Patient herself is doing fairly well and does not have any concerns or complaints. I was asked to see her for medical management. Her blood pressure is borderline low postoperatively. She denies dizziness or lightheadedness. Review of Systems Review of system: 14 points review of systems were obtained and were negative except to what were mentioned in the HPI. Past Medical History Past Medical History: Cancer, CVA/TIA, Hyperlipidemia, Hypertension Additional Past Medical History / Comment(s): TIA 2012-no residual effects, hx breast cancer, using a cane History of Any Multi-Drug Resistant Organisms: None Reported Past Surgical History: Breast Surgery, Hysterectomy, Joint Replacement, Orthopedic Surgery Additional Past Surgical History / Comment(s): Bilateral masctectomy 1990, ORIF right wrist, right hip replacement. Past Anesthesia/Blood Transfusion Reactions: No Reported Reaction Additional Past Anesthesia/Blood Transfusion Reaction / Comm: no hx of problems with prior blood transfusion Past Psychological History: No Psychological Hx Reported Additional Psychological History / Comment(s): denies Smoking Status: Never smoker Past Alcohol Use History: Daily Additional Past Alcohol Use History / Comment(s): Quit smoking , smoked for about 15 yrs, < 1 PPD. Past Drug Use History: None Reported - Past Family History Father Family Medical History: Cancer Additional Family Medical History / Comment(s): melanoma Medications and Allergies Home Medications Medication Instructions Recorded Confirmed Type Sertraline [Zoloft] 75 mg PO QAM 04/26/16 12/04/19 History Aspirin [Adult Low Dose Aspirin EC] 81 mg PO DAILY 05/16/18 12/04/19 History Vitamin A, D, K 1 tab PO DAILY 05/16/18 12/04/19 History Valsartan/Hydrochlorothiazide 1 each PO QAM 12/04/19 12/04/19 History [Valsartan-Hctz 160-25 mg Tab] Allergies Allergy/AdvReac Type Severity Reaction Status Date / Time No Known Allergies Allergy Verified 12/10/19 11:30 Physical Exam Vitals: Vital Signs Temp Pulse Resp BP Pulse Ox 12/10/19 15:30 49 L 16 108/71 100 12/10/19 15:15 55 L 16 111/56 100 12/10/19 15:00 51 L 14 100/57 100 12/10/19 14:45 57 L 16 100/57 96 12/10/19 14:31 97.2 F L 67 16 98/49 99 12/10/19 11:37 98.0 F 77 16 182/90 100 Intake and Output 12/10/19 12/10/19 12/10/19 06:59 14:59 22:59 Intake Total 150 900 Output Total 100 Balance 50 900 Intake: IV 150 900 Output: Estimated Blood Loss 100 Other: Weight 61.7 kg 61.7 kg General: The patient is awake and alert, in no distress Eye: there is normal conjunctiva bilaterally. Neck: The neck is supple, there is no JVD. Cardiovascular: Normal S1-S2, no S3-S4, no murmurs. Respiratory: Lungs clear to auscultation bilaterally Gastrointestinal: Abdomen is soft, nontender Musculoskeletal: There is no pedal edema. Neurological:. Speech is normal. Skin: Skin is warm and dry Assessment and Plan Assessment: 1. Postoperative day #0 status post left total hip arthroplasty, postoperative care per orthopedic. Pain control and DVT prophylaxis per orthopedic protocol. PT/OT evaluation. 2. Essential hypertension, blood pressure on the lower side postoperatively. Hold home blood pressure medication. Reassess in the morning. 3. Underlying depression: Continue home dose of Zoloft Today, I reviewed her medication list and lab work results. Continue current regimen. Thank you very much for the consultation. We will continue to follow the patient closely with you.
[2019-12-10] MEDS ORDERED: SENNOSIDES-DOCUSATE SODIUM 1 EACH TAB PO SCH (21:00)
[2019-12-10] MEDS: ASPIRIN 325 MG TAB PO SCH (21:39)
[2019-12-11] MEDS: ACETAMINOPHEN TAB 325 MG TAB PO PRN ×2 (00:49→08:15)
[2019-12-11] MEDS: SODIUM CHLORIDE 0.9% 1,000 ML IV SCH ×2 (00:51→05:50)
[2019-12-11] MEDS ORDERED: hydrALAZINE HCL 50 MG TAB PO STA (04:16)
[2019-12-11 05:00] VITALS: RESP 16
[2019-12-11] MEDS ORDERED: VALSARTAN 160 MG TAB PO SCH (05:00)
[2019-12-11] MEDS ORDERED: hydroCHLOROthiazide 25 MG TAB PO SCH (05:00)
[2019-12-11 08:11] VITALS: PULSE 64; TEMP 97.9
[2019-12-11] MEDS: ASPIRIN 325 MG TAB PO SCH (08:16)
[2019-12-11 08:22] LABS: Basophils % (A) 0 %; Eosinophils # (A) 0.1 k/uL (0-0.7); Eosinophils % (A) 1 %; HCT 38.4 % (34.0-46.0); HGB 12.5 gm/dL (11.4-16.0); Lymphocytes % (A) 23 %; MCH 32.5 pg (25.0-35.0); MCHC 32.5 g/dL (31.0-37.0); Mean Platelet Volume 7.3; Monocytes # (A) 0.5 k/uL (0-1.0); Monocytes % (A) 5 %; Neutrophils # (A) 6.1 k/uL (1.3-7.7); Neutrophils % (A) 70 %; Platelet Count 284 k/uL (150-450); RBC 3.84 m/uL (3.80-5.40); RDW 12.5 % (11.5-15.5); WBC 8.7 k/uL (3.8-10.6)
[2019-12-11] MEDS ORDERED: SERTRALINE 25 MG TAB PO SCH (09:00)
--- NOTE | 2019-12-11 09:21 | P.DS ---
Providers Expected date of discharge: 12/11/19 Attending physician: Vic Sears Consults: 12/10/19 09:10 Consult Physician Routine Consulting Provider: Anna Baca Consult Reason/Comments: medical management Do you want consulting provider notified?: Yes Primary care physician: Danny Alston - Discharge Diagnosis(es) (1) Status post total hip replacement, left Current Visit: Yes Status: Acute (2) Osteoarthritis of left hip Current Visit: Yes Status: Acute Hospital Course: This is a 69-year-old female with known history of degenerative arthritis of the left hip. The patient presents for evaluation. After discussion and consideration patient elects to proceed with total hip arthroplasty. The patient is seen preoperatively by Dr. Sears and medically cleared for surgery by their primary care physician. Patient is admitted to [facility] on 12/10/2019 for total hip arthroplasty. The procedures performed without complication or sequelae. The patient is doing well postoperatively. Labs and vital signs are stable on day of discharge. On day of discharge patient's hip incision is healing well. There is minimal erythema. There is no drainage noted at this time. There is minimal soft tissue swelling to the hip and thigh. Patient has full foot and ankle motion without difficulty or pain. Calf is soft and nontender to palpation. Neurovascular status to the left lower extremity is intact. Patient is discharged home in good condition. Opioid start talking form is reviewed and signed at patient bedside. Please see med rec for accurate list of home medications. Plan - Discharge Summary Discharge Rx Participant: No New Discharge Prescriptions: New Aspirin 325 mg PO BID #60 tab HYDROcodone/APAP 5-325MG [[place] 5-325] 1 - 2 tab PO Q6HR PRN #48 tab PRN Reason: Pain Sennosides [Senokot] 2 tab PO DAILY PRN #60 tablet PRN Reason: Constipation No Action Sertraline [Zoloft] 75 mg PO QAM Aspirin [Adult Low Dose Aspirin EC] 81 mg PO DAILY Vitamin A, D, K 1 tab PO DAILY Valsartan/Hydrochlorothiazide [Valsartan-Hctz 160-25 mg Tab] 1 each PO QAM Discharge Medication List Sertraline [Zoloft] 75 mg PO QAM 04/26/16 [History] Aspirin [Adult Low Dose Aspirin EC] 81 mg PO DAILY 05/16/18 [History] Vitamin A, D, K 1 tab PO DAILY 05/16/18 [History] Valsartan/Hydrochlorothiazide [Valsartan-Hctz 160-25 mg Tab] 1 each PO QAM 12/04/19 [History] Aspirin 325 mg PO BID #60 tab 12/11/19 [Rx] HYDROcodone/APAP 5-325MG [[place] 5-325] 1 - 2 tab PO Q6HR PRN #48 tab 12/11/19 [R x] Sennosides [Senokot] 2 tab PO DAILY PRN #60 tablet 12/11/19 [Rx] Follow up Appointment(s)/Referral(s): Danny Alston MD [Primary Care Provider] - 1 Week Vic Sears DO [Doctor of Osteopathic Medicine] - 12/24/19 3:00 pm Activity/Diet/Wound Care/Special Instructions: Weightbearing as tolerated with walker. Leave dressing intact. Dressing may be removed by home care nurse or by patient in 10 days. May shower with dressing on. Please take aspirin 325mg twice daily for 30 days to prevent blood clots. Recommend use of compression stockings daily until follow up to help prevent swelling and blood clots. May remove at night before sleeping. Please follow-up with [facility] in 2 weeks and call with any questions or concerns, . Discharge Disposition: HOME WITH HOME HEALTH SERVICES
[2019-12-11 09:45] VITALS: BP 123/62
--- NOTE | 2019-12-11 09:59 | P.PN ---
Subjective Progress Note Date: 12/11/19 Patient is doing well today. She was up in the chair dressed up and ready to give the hospital when I saw her. She denies any pain. She is looking forward to go home. Objective - Vital Signs Vital signs: Vital Signs Temp 97.9 F 12/11/19 07:00 Pulse 64 12/11/19 07:00 Resp 16 12/11/19 07:00 BP 123/62 12/11/19 09:45 Pulse Ox 100 12/11/19 07:00 Intake & Output 12/10/19 12/11/19 12/11/19 18:59 06:59 18:59 Intake Total 1050 Output Total 100 Balance 950 Weight 61.7 kg Intake: IV 1050 Output: Estimated Blood Loss 100 Other: # Voids 1 - Exam General: The patient is awake and alert, in no distress Eye: there is normal conjunctiva bilaterally. Neck: The neck is supple, there is no JVD. Cardiovascular: Normal S1-S2, no S3-S4, no murmurs. Respiratory: Lungs clear to auscultation bilaterally Gastrointestinal: Abdomen is soft, nontender Musculoskeletal: There is no pedal edema. Neurological:. Speech is normal. Skin: Skin is warm and dry - Labs CBC & Chem 7: 12/11/19 07:50 Assessment and Plan Assessment: 1. Postoperative day #1 status post left total hip arthroplasty, postoperative care per orthopedic. Pain control and DVT prophylaxis per orthopedic protocol. PT/OT evaluation. 2. Essential hypertension, resume home medication 3. Underlying depression: Continue home dose of Zoloft Patient is medically cleared for discharge
== END 2019-12-11 11:05 | disposition home health service (06) ==
LOC: OR 11:14 → 4SSUR 14:37 → OR 12-11 11:05
PROVIDERS: ATTEND Orthopaedic Surgery
DX: M16.12 Unilateral primary osteoarthritis, left hip (principal); I10 Essential (primary) hypertension; E78.5 Hyperlipidemia, unspecified; E03.9 Hypothyroidism, unspecified; F32.9 Major depressive disorder, single episode, unspecified; Z79.82 Long term (current) use of aspirin; Z79.899 Other long term (current) drug therapy; Z87.891 Personal history of nicotine dependence; Z96.641 Presence of right artificial hip joint; Z90.13 Acquired absence of bilateral breasts and nipples; Z97.3 Presence of spectacles and contact lenses; Z85.3 Personal history of malignant neoplasm of breast; Z86.73 Personal history of transient ischemic attack (TIA), and cerebral infarction without residual deficits; Z90.710 Acquired absence of both cervix and uterus; Z98.890 Other specified postprocedural states; Z82.49 Family history of ischemic heart disease and other diseases of the circulatory system; Z83.6 Family history of other diseases of the respiratory system; Z80.8 Family history of malignant neoplasm of other organs or systems
CPT/HCPCS: 97110; 97161; 97165; 85025; 88300; 73501; 27130; J0171; J1100; J0690 ×2; J2405; J1885; J2795; J0735; 86850; 86891; 86900; 86901

== ENCOUNTER → 2024-03-13 | Outpatient (CLI) | payer MEDICARE ==
--- NOTE | 2024-03-13 15:56 | BD ---
EXAMINATION TYPE: Axial Bone Density DATE OF EXAM: 03/13/2024 CLINICAL HISTORY: 73 years old Female. ICD-10 CODE: M85.80 OT DISRD OF BONE DENSITY AND STRUCTURE , Additional History: Height: 5 ft 2 1/2 in Weight: 133 FRAX RISK QUESTIONS: Alcohol (3 or more units per day): no Family History (Parent hip fracture): no Glucocorticoids (More than 3mos): no (Ex: prednisone, prednisolone, methylprednisolone, dexamethasone, and hydrocortisone). History of Fracture in Adulthood: yes Secondary Osteoporosis: 1. Type 1 Diabetes: no 2. Hyperthyroidism: no 3. Menopause before 45: yes 4. Malnutrition: no 5. Chronic liver disease: no Rheumatoid Arthritis: no Current Tobacco Use: no RISK FACTORS HISTORY OF: Hip Fracture (Right/Left): When: Spine Fracture: When: History of Wrist Fracture: rt wrist When: 6 years ago Surgery to Spine/Hip(right/left)/Wrist (right/left): rt wrist efra hip replacement When: MEDICATIONS: Thyroid Medications: none Osteoporosis Medications: none EXAM MEASUREMENTS: Bone mineral densitometry was performed using the [employer] System. Bone mineral density as measured about the Lumbar spine is: ----- L1-L4(G/cm2): 1.083 T Score Values are as follows: ----- L1: -1.9 ----- L2: 1.2 ----- L3: -0.6 ----- L4: -1.8 ----- L1-L4: -0.8 Z Score Values are as follows: ----- L1: 0.0 ----- L2: 3.1 ----- L3: 1.3 ----- L4: 0.1 ----- L1-L4: 1.1 baseline Bone mineral density about the L Wrist (g/cm2): 0.512 T Score values are as follows: -----Dist. R+U: -3.3 -----Prox. R+U: -2.3 -----Radius total: -2.7 Z Score values are as follows: -----Dist. R+U: -0.9 -----Prox. R+U: 0.0 -----Radius total: -0.4 baseline no frax IMPRESSION: Osteopenia (T Score between -2.5 and -1). Note that measurements are bordering on osteoporosis at the left wrist. There is slightly increased risk of fracture and the patient may be considered for treatment. Re-Screen 2-5 years. NOTE: T-SCORE=SD OF THE YOUNG ADULT MEAN. [facility], , 03/13/2024 3:54 PM
== END | disposition home or self-care (01) ==
LOC: RADBDWWP 14:54
PROVIDERS: ATTEND Family Medicine
DX: M85.80 Other specified disorders of bone density and structure, unspecified site (principal); M81.8 Other osteoporosis without current pathological fracture; Z78.0 Asymptomatic menopausal state
CPT/HCPCS: 77080